=== PATIENT | female | born 1970 | race Caucasian/White ===

== ENCOUNTER 2017-04-04 10:18 | Emergency (ER) | payer SELFPAY ==
--- NOTE | 2017-04-04 10:38 | PDOC ---
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 Denies chills, dysuria, hematuria or previous similar event in the past. Previous abdominal surgery: hysterectomy and tummy tuck. No history of appendicitis or kidney stones Patient took two advils last night that allowed her to sleep. 04/04/17 12:06 Past History - Past Medical History Allergies/Adverse Reactions: Allergies Allergy/AdvReac Type Severity Reaction Status Date / Time No Known Allergies Allergy Verified 04/04/17 10:24 Home Medications: Ambulatory Orders Levothyroxine Sodium [Synthroid] 100 mcg PO DAILY 04/04/17 Review of Systems - Review of Systems Able to Perform ROS?: Yes Is the patient limited Czech proficient: Yes Constitutional: No: Chills, Diaphoresis, Fever, Loss of Appetite HEENTM: No: Symptoms Reported Respiratory: Yes: See HPI Cardiac (ROS): No: Symptoms Reported ABD/GI: No: Abdominal Distended, Abd. Pain w/ defecation, Blood Streaked Bowels , Constipated, Diarrhea, Difficulty Swallowing, Nausea, Vomiting : No: Symptoms Reported Musculoskeletal: No: Symptoms Reported Integumentary: No: Symptoms Reported Neurological: No: Symptoms reported Endocrine: No: Symptoms Reported Hematologic/Lymphatic: No: Symptoms Reported All Other Systems: Reviewed and Negative *Physical Exam - Physical Exam General Appearance: Yes: Nourished, Appropriately Dressed. No: Apparent Distress HEENT: positive: EOMI, HAZEL, Normal ENT Inspection Neck: positive: Trachea midline. negative: Tender Respiratory/Chest: positive: Lungs Clear, Normal Breath Sounds. negative: Chest Tender Cardiovascular: positive: Regular Rhythm, Regular Rate, S1, S2 Vascular Pulses: Dorsalis-Pedis (R): 2+, Doralis-Pedis (L): 2+ Gastrointestinal/Abdominal: positive: Increased Bowel Sounds, Tenderness, Other (positive psoas and obturator sign, negative Rovsnig). negative: Distended Musculoskeletal: positive: CVA Tenderness (R) Extremity: positive: Normal Capillary Refill Integumentary: positive: Normal Color, Dry, Warm Neurologic: positive: Fully Oriented, Alert, Normal Mood/Affect, Normal Response ED Treatment Course - LABORATORY CBC & Chemistry Diagram: 04/04/17 11:40 04/04/17 11:40 Medical Decision Making - Medical Decision Making 04/04/17 11:25 47F presenting with right sidesd LRQ pain and CVA tenderness. Afebrile, labs, Urine all WNL CT abdomen with IV and PO contrast ordered. 04/04/17 11:28 04/04/17 15:25 CT abdomen with PO + IV contrast: Cholelithiasis, otherwise normal CT scan of the abdomen and pelvis with no evidence of appendicitis or acute pathology Referal to outpatient GI Dr. Hameed for cholelithiasis. Toradol for pain. *DC/Admit/Observation/Transfer Diagnosis at time of Disposition: Cholelithiasis - Discharge Dispostion Disposition: HOME Admit: No - Referrals Referrals: Jani Hameed MD [Staff Physician] - - Patient Instructions Printed Discharge Instructions: DI for Gallstones, Increased Dietary Fiber May Improve Constipation Conditions With Pelvic [place] Additional Instructions: Please make appointment with Dr. Hameed as soon office is open. Come back to the Emergency department for any new, concerning or worsening symptom. Fiber diet for constipation and avoid fatty meals. Print Language: URDU - Post Discharge Activity
--- NOTE | 2017-04-04 10:48 | PDOC ---
Attending Attestation - Resident Resident Name: Ronny Lopez - HPI HPI: 04/04/17 11:28 Pt presents to the ED complaining of a one day history of r sided abdominal pain. Denies associated nausea, vomiting, urinary complaints or anorexia. No surgical history. - Physicial Exam PE: 04/04/17 11:31 agree with resident exam. Abdomen is mildly tender to deep palpation on my exam - Medical Decision Making 04/04/17 11:32 Pt presents to the ED complaining of abdominal pain. Differential includes biliary disease, appendicitis, renal stone, gastroentertitis. Will check labs and CT abdomen pelvis and reassess.
[2017-04-04 11:00] VITALS: BMI 25.0
[2017-04-04 11:56] LABS: BASO % 0.6 % (0-2.0); EOS % 1.3 % (0-4.5); HEMATOCRIT 41.1 % (32.4-45.2); HEMOGLOBIN 13.5 GM/dL (10.7-15.3); LYMPH % 30.5 % (8-40); MCHC 32.8 g/dl (32.0-36.0); MEAN CELL VOLUME 91.4 fl (80-96); MEAN PLT VOLUME 8.7 fl (7.5-11.1); MONO % 8.2 % (3.8-10.2); NEUT % 59.4 % (42.8-82.8); PLATELET COUNT 223 K/MM3 (134-434); RBC 4.49 M/mm3 (3.60-5.2); RDW 12.2 % (11.6-15.6); WHITE BLOOD COUNT 4.7 K/mm3 (4.0-10.0)
[2017-04-04 11:58] LABS: URINE APPEARANCE CLEAR; URINE BILIRUBIN NEGATIVE (NEGATIVE); URINE BLOOD NEGATIVE (NEGATIVE); URINE COLOR YELLOW; URINE GLUCOSE (UA) NEGATIVE (NEGATIVE); URINE KETONE NEGATIVE (NEGATIVE); URINE LEUK ESTERASE NEGATIVE (NEGATIVE); URINE NITRITE NEGATIVE (NEGATIVE); URINE PROTEIN NEGATIVE (NEGATIVE); URINE UROBILINOGEN NEGATIVE mg/dL (0.2-1.0)
[2017-04-04 12:31] LABS: ALBUMIN 3.5 g/dl (3.4-5.0); ANION GAP 8 (8-16); BLOOD UREA NITROGEN 10 mg/dL (7-18); CALCIUM 8.7 mg/dL (8.5-10.1); CHLORIDE 107 mmol/L (98-107); CO2 25 mmol/L (21-32); GLUCOSE,RANDOM 111 mg/dL (74-106); POTASSIUM 3.9 mmol/L (3.5-5.1); SODIUM 140 mmol/L (136-145)
[2017-04-04 12:34] LABS: BILIRUBIN,TOTAL 0.3 mg/dL (0.2-1.0); CREATININE 0.6 mg/dL (0.55-1.02); SGOT/AST 24 U/L (15-37); SGPT/ALT 34 U/L (12-78)
[2017-04-04 12:35] LABS: ALK PHOS 83 U/L (45-117)
[2017-04-04 13:44] LABS: INR 1.04 (0.82-1.09); PROTHROMBIN TIME (PATIENT) 11.7 SEC (9.98-11.88)
[2017-04-04] MEDS ORDERED: KETOROLAC TROMETHAMINE 15 MG/ML VIAL IVPUSH ONE (15:24)
[2017-04-04] MEDS ORDERED: KETOROLAC TROMETHAMINE 15 MG/ML VIAL ONE (15:33)
[2017-04-04 16:00] VITALS: BP 132/77; PULSE 79; TEMP 98.1
== END 2017-04-04 16:04 | disposition home or self-care (01) ==
LOC: JER 10:18
PROC: 3E0333Z Introduction of Anti-inflammatory into Peripheral Vein, Percutaneous Approach (ICD-10-PCS; principal; 2017-04-04)
DX: K80.20 Calculus of gallbladder without cholecystitis without obstruction (principal); I10 Essential (primary) hypertension; E06.3 Autoimmune thyroiditis
CPT/HCPCS: 36415; 74177-TC; 80053; 81003; 85025; 85610; 85730; 99285-25; Q9967